=== PATIENT | female | born 1970 | race American Indian/Alaskan Native ===

== ENCOUNTER 2017-04-28 09:34 | Inpatient (IN) | payer BC ==
--- NOTE | 2017-04-28 10:18 | Emergency Department Report ---
HPI - General Chief Complaint: Allergic Reaction Time Seen by Provider: 04/28/17 10:13 - HPI HPI: Room 24 The patient is a 47-year-old female presented with a chief complaint tongue swelling. The patient states she takes Diovan HCT for blood pressure control. The patient states this morning after waking she thought she had a subjective fever so she took a Motrin at 07:00. Within the hour the patient states she noticed swelling of her tongue and itching of her face. The patient states she has taken Motrin in the past without difficulty. The patient has had angioedema from lisinopril in the past. Patient denies shortness of breath or pain of any type. Location: Tongue Duration: Approximately 3 hours Quality: Swelling Severity: Moderate Modifying factors: [see above] Context: [see above] Mode of transportation: [not driving] ED Past Medical Hx - Past Medical History Hx Hypertension: Yes Hx Diabetes: Yes - Surgical History Additional Surgical History: Hysterectomy - Family History Family history: no significant - Social History Smoking Status: Never Smoker Substance Use Type: Alcohol (occasional) - Medications Home Medications: Home Medications Medication Instructions Recorded Confirmed Last Taken Type Atenolol [Tenormin] 50 mg PO BID #60 tablet 06/13/13 Unknown Rx Azithromycin [Zithromax Z-ABDIAZIZ] 250 mg PO DAILY #6 tablet 06/13/13 Unknown Rx Clonidine HCl [Kapvay] 0.1 mg PO BID 06/13/13 06/13/13 06/07/13 History Hydrochlorothiazide [HCTZ] 25 mg PO QDAY #30 tablet 06/13/13 Unknown Rx Hydrocodone Bit/Homatrop Me-Br 5 ml PO Q4H PRN #80 syrup 06/13/13 Unknown Rx [Hydrocodone-Homatropine Syr 5-1.5 mg/5ml] Insulin Regular, Human Inj 10 unit SUB-Q AC 06/13/13 06/13/13 06/12/13 18:00 History [Novolin R Inj] Ibuprofen [Motrin] 800 mg PO Q8H #30 tablet 04/11/14 Unknown Rx methOCARBAMOL [Robaxin] 500 mg PO BID #30 tab 04/11/14 Unknown Rx traMADol [Ultram 50 MG tab] 50 mg PO Q6HR PRN #20 tablet 04/11/14 Unknown Rx Amoxicillin [Trimox CAP] 500 mg PO Q8H #30 capsule 04/06/15 Unknown Rx HYDROcodone/APAP 7.5-325 [[place] 1 each PO Q6HR PRN #16 tablet 04/06/15 Unknown Rx 7.5/325] ED Review of Systems ROS: Stated complaint: ALLERGIC REACTION Other details as noted in HPI Constitutional: fever Eyes: denies: eye pain ENT: other (tongue swelling) Respiratory: denies: shortness of breath Cardiovascular: denies: chest pain Gastrointestinal: denies: abdominal pain Genitourinary: denies: dysuria Musculoskeletal: denies: back pain Skin: pruritus Neurological: denies: headache Physical Exam - Physical Exam Vital Signs: Vital Signs 04/28/17 09:45 Temperature 98.9 F Pulse Rate 79 Respiratory 18 Rate Blood Pressure 159/78 O2 Sat by Pulse 100 Oximetry Physical Exam: GENERAL: The patient is well-developed well-nourished female lying on stretcher not appearing to be in acute distress. [] HEENT: Normocephalic. Atraumatic. Extraocular motions are intact. Patient has moist mucous membranes. Mild edema. OROPHARYNX CLEAR. NECK: Supple. No stridor CHEST/LUNGS: Clear to auscultation. There is no respiratory distress noted. HEART/CARDIOVASCULAR: Regular. There is no tachycardia. There is no gallop rub or murmur. ABDOMEN: Abdomen is soft, nontender. Patient has normal bowel sounds. There is no abdominal distention. SKIN: There is no rash. There is no edema. There is no diaphoresis. NEURO: The patient is awake, alert, and oriented. The patient is cooperative. The patient has normal speech MUSCULOSKELETAL: There is no evidence of acute injury. ED Course Vital Signs 04/28/17 09:45 Temperature 98.9 F Pulse Rate 79 Respiratory 18 Rate Blood Pressure 159/78 O2 Sat by Pulse 100 Oximetry ED Medical Decision Making - Lab Data Result diagrams: 04/28/17 10:55 04/28/17 10:55 Laboratory Tests 04/28/17 04/28/17 10:55 10:55 WBC 8.8 RBC 4.87 Hgb 12.1 Hct 37.6 MCV 77 L MCH 25 L MCHC 32 RDW 16.5 H Plt Count 238 Lymph % (Auto) 20.1 [place] % (Auto) 9.2 H Eos % (Auto) 1.3 Baso % (Auto) 1.4 Lymph # 1.8 [place] # 0.8 Eos # 0.1 Baso # 0.1 Seg Neutrophils % 68.0 Seg Neutrophils # 5.9 Sodium 136 L Potassium 3.7 Chloride 98.7 Carbon Dioxide 25 Anion Gap 16 BUN 12 Creatinine 0.7 Estimated GFR > 60 BUN/Creatinine Ratio 17 Glucose 263 H Calcium 9.5 - EKG Data -: EKG Interpreted by Me EKG shows normal: sinus rhythm Rate: normal - EKG Data When compared to previous EKG there are: previous EKG unavailable Interpretation: nonspecific ST-T wave leonela - Differential Diagnosis angioedema Critical care attestation.: If time is entered above; I have spent that time in minutes in the direct care of this critically ill patient, excluding procedure time. ED Disposition Clinical Impression: Angioedema Disposition: OP ADMIT IP TO THIS HOSP Is pt being admited?: Yes Does the pt Need Aspirin: No Condition: Fair Referrals: PRIMARY CARE, [Primary Care Provider] - 3-5 Days Time of Disposition: 11:37 (hospitalist paged (Dr Bay))
[2017-04-28] MEDS ORDERED: PEPCID IV ONE (10:19)
[2017-04-28 11:05] LABS: Basophils # (Auto) 0.1 K/mm3 (0.0-0.1); Basophils % (Auto) 1.4 % (0.0-1.8); Eosinophils # (Auto) 0.1 K/mm3 (0.0-0.4); Eosinophils % (Auto) 1.3 % (0.0-4.3); Hematocrit 37.6 % (30.3-42.9); Hemoglobin 12.1 gm/dl (10.1-14.3); Lymphocytes # (Auto) 1.8 K/mm3 (1.2-5.4); Lymphocytes % (Auto) 20.1 % (13.4-35.0); Mean Corpuscular HGB Conc 32 % (30-34); Mean Corpuscular Volume 77 fl (79-97); Monocytes # (Auto) 0.8 K/mm3 (0.0-0.8); Monocytes % (Auto) 9.2 % (0.0-7.3); Platelet Count 238 K/mm3 (140-440); Red Blood Count 4.87 M/mm3 (3.65-5.03); Red Cell Distribution Width 16.5 % (13.2-15.2)
[2017-04-28 11:07] LABS: Mean Corpuscular Hemoglobin 25 pg (28-32)
[2017-04-28 11:21] LABS: BUN/Creatinine Ratio 17; Blood Urea Nitrogen 12 mg/dL (7-17); Calcium 9.5 mg/dL (8.4-10.2); Hemolysis Index 20
[2017-04-28] MEDS ORDERED: DULCOLAX PR PRN (18:23)
[2017-04-28] MEDS ORDERED: TYLENOL PO PRN (18:23)
[2017-04-28] MEDS ORDERED: MORPHINE IV PRN (18:23)
[2017-04-28] MEDS ORDERED: PERCOCET 5/325 PO PRN (18:23)
[2017-04-28] MEDS ORDERED: ZOFRAN IV PRN (18:23)
[2017-04-28] MEDS ORDERED: MILK OF MAGNESIA PO PRN (18:23)
--- NOTE | 2017-04-28 18:23 | History and Physical Report ---
History of Present Illness Date of examination: 04/28/17 Date of admission: 04/28/17 11:55 Chief complaint: CC: Swelling of Lips and Tongue since AM History of present illness: SHANIQUA Mariscal 47-year-old AA female with pmh of HTN and IDDM presented with chief complaint of tongue swelling. The patient states she takes Diovan HCT for blood pressure control. The patient states this morning after waking she thought she had a subjective fever so she took a Motrin at 07:00. Within the hour the patient states she noticed swelling of her tongue and itching of her face. The patient states she has taken Motrin in the past without difficulty. The patient has had angioedema from lisinopril in the past. Patient denies shortness of breath or pain of any type. Probably exacerbated by Diovan or Ibuprofen Past Medical History Hx Hypertension: Yes Hx Diabetes: Yes Surgical History Additional Surgical History: Hysterectomy Family History Family history: no significant Social History Smoking Status: Never Smoker Substance Use Type: Alcohol (occasional) -Medications Home Medications: Home Medications Medication Instructions Recorded Confirmed Last Taken Type Atenolol [Tenormin] 50 mg PO BID #60 tablet 06/13/13 Unknown Rx Azithromycin [Zithromax Z-ABDIAZIZ] 250 mg PO DAILY #6 tablet 06/13/13 Unknown Rx Clonidine HCl [Kapvay] 0.1 mg PO BID 06/13/13 06/13/13 06/07/13 History Hydrochlorothiazide [HCTZ] 25 mg PO QDAY #30 tablet 06/13/13 Unknown Rx Hydrocodone Bit/Homatrop Me-Br 5 ml PO Q4H PRN #80 syrup 06/13/13 Unknown Rx [Hydrocodone-Homatropine Syr 5-1.5 mg/5ml] Insulin Regular, Human Inj 10 unit SUB-Q AC 06/13/13 06/13/13 06/12/13 18:00 History [Novolin R Inj] Ibuprofen [Motrin] 800 mg PO Q8H #30 tablet 04/11/14 Unknown Rx methOCARBAMOL [Robaxin] 500 mg PO BID #30 tab 04/11/14 Unknown Rx traMADol [Ultram 50 MG tab] 50 mg PO Q6HR PRN #20 tablet 04/11/14 Unknown Rx Amoxicillin [Trimox CAP] 500 mg PO Q8H #30 capsule 04/06/15 Unknown Rx HYDROcodone/APAP 7.5-325 [[place] 1 each PO Q6HR PRN #16 tablet 04/06/15 Unknown Rx 7.5/325] Review of Systems Stated complaint: ALLERGIC REACTION Other details as noted in HPI Constitutional: fever Eyes: denies: eye pain ENT: other (tongue swelling) Respiratory: denies: shortness of breath Cardiovascular: denies: chest pain Gastrointestinal: denies: abdominal pain Genitourinary: denies: dysuria Musculoskeletal: denies: back pain Skin: pruritus Neurological: denies: headache Past History Past Medical History: diabetes, hypertension Medications and Allergies Allergies Allergy/AdvReac Type Severity Reaction Status Date / Time lisinopril [From Zestril] Allergy Angioedema Verified 06/13/13 04:33 Home Medications Medication Instructions Recorded Confirmed Last Taken Type Atenolol [Tenormin] 50 mg PO BID #60 tablet 06/13/13 Unknown Rx Azithromycin [Zithromax Z-ABDIAZIZ] 250 mg PO DAILY #6 tablet 06/13/13 Unknown Rx Clonidine HCl [Kapvay] 0.1 mg PO BID 06/13/13 06/13/13 06/07/13 History Hydrochlorothiazide [HCTZ] 25 mg PO QDAY #30 tablet 06/13/13 Unknown Rx Hydrocodone Bit/Homatrop Me-Br 5 ml PO Q4H PRN #80 syrup 06/13/13 Unknown Rx [Hydrocodone-Homatropine Syr 5-1.5 mg/5ml] Insulin Regular, Human Inj 10 unit SUB-Q AC 06/13/13 06/13/13 06/12/13 18:00 History [Novolin R Inj] Ibuprofen [Motrin] 800 mg PO Q8H #30 tablet 04/11/14 Unknown Rx methOCARBAMOL [Robaxin] 500 mg PO BID #30 tab 04/11/14 Unknown Rx traMADol [Ultram 50 MG tab] 50 mg PO Q6HR PRN #20 tablet 04/11/14 Unknown Rx Amoxicillin [Trimox CAP] 500 mg PO Q8H #30 capsule 04/06/15 Unknown Rx HYDROcodone/APAP 7.5-325 [[place] 1 each PO Q6HR PRN #16 tablet 04/06/15 Unknown Rx 7.5/325] Exam - Constitutional Vitals: Temp Pulse Resp BP Pulse Ox 98.4 F 78 16 156/78 100 12/31/17 10:10 04/28/17 16:58 04/28/17 16:58 04/28/17 16:58 04/28/17 16:58 General appearance: Present: mild distress, well-nourished - EENT Eyes: Present: PERRL ENT: hearing intact, clear oral mucosa, other (Lips swollen moderately.,Tongue swollen.) - Neck Neck: Present: supple, normal ROM - Respiratory Respiratory effort: normal Respiratory: bilateral: CTA - Cardiovascular Heart rate: 80 Rhythm: regular Heart Sounds: Present: S1 & S2. Absent: rub, click - Extremities Extremities: pulses symmetrical, No edema Peripheral Pulses: within normal limits - Abdominal General gastrointestinal: Present: soft, non-tender, non-distended, normal bowel sounds Female genitourinary: Present: normal - Rectal Rectal Exam: deferred - Integumentary Integumentary: Present: clear, warm, dry - Musculoskeletal Musculoskeletal: gait normal, strength equal bilaterally - Psychiatric Psychiatric: appropriate mood/affect, intact judgment & insight - Neurologic Neurologic: CNII-XII intact, moves all extremities - Allied Health Allied health notes reviewed: nursing, case management Results - Labs CBC & Chem 7: 04/29/17 05:42 04/28/17 10:55 Labs: Laboratory Last Values WBC 8.8 K/mm3 (4.5-11.0) 04/28/17 10:55 RBC 4.87 M/mm3 (3.65-5.03) 04/28/17 10:55 Hgb 12.1 gm/dl (10.1-14.3) 04/28/17 10:55 Hct 37.6 % (30.3-42.9) 04/28/17 10:55 MCV 77 fl (79-97) L 04/28/17 10:55 MCH 25 pg (28-32) L 04/28/17 10:55 MCHC 32 % (30-34) 04/28/17 10:55 RDW 16.5 % (13.2-15.2) H 04/28/17 10:55 Plt Count 238 K/mm3 (140-440) 04/28/17 10:55 Lymph % (Auto) 20.1 % (13.4-35.0) 04/28/17 10:55 [place] % (Auto) 9.2 % (0.0-7.3) H 04/28/17 10:55 Eos % (Auto) 1.3 % (0.0-4.3) 04/28/17 10:55 Baso % (Auto) 1.4 % (0.0-1.8) 04/28/17 10:55 Lymph # 1.8 K/mm3 (1.2-5.4) 04/28/17 10:55 [place] # 0.8 K/mm3 (0.0-0.8) 04/28/17 10:55 Eos # 0.1 K/mm3 (0.0-0.4) 04/28/17 10:55 Baso # 0.1 K/mm3 (0.0-0.1) 04/28/17 10:55 Seg Neutrophils % 68.0 % (40.0-70.0) 04/28/17 10:55 Seg Neutrophils # 5.9 K/mm3 (1.8-7.7) 04/28/17 10:55 Sodium 136 mmol/L (137-145) L 04/28/17 10:55 Potassium 3.7 mmol/L (3.6-5.0) 04/28/17 10:55 Chloride 98.7 mmol/L (98-107) 04/28/17 10:55 Carbon Dioxide 25 mmol/L (22-30) 04/28/17 10:55 Anion Gap 16 mmol/L 04/28/17 10:55 BUN 12 mg/dL (7-17) 04/28/17 10:55 Creatinine 0.7 mg/dL (0.7-1.2) 04/28/17 10:55 Estimated GFR > 60 ml/min 04/28/17 10:55 BUN/Creatinine Ratio 17 % 04/28/17 10:55 Glucose 263 mg/dL (65-100) H 04/28/17 10:55 POC Glucose 273 (70-105) H 04/28/17 15:13 Calcium 9.5 mg/dL (8.4-10.2) 04/28/17 10:55 Short CBC 04/28/17 04/29/17 Range/Units 10:55 05:42 WBC 8.8 18.6 H (4.5-11.0) K/mm3 Hgb 12.1 12.4 (10.1-14.3) gm/dl Hct 37.6 37.8 (30.3-42.9) % Plt Count 238 278 (140-440) K/mm3 [facility] 04/28/17 10:55 Sodium 136 L Potassium 3.7 Chloride 98.7 Carbon Dioxide 25 BUN 12 Creatinine 0.7 Glucose 263 H Calcium 9.5 - Imaging and Cardiology EKG: report reviewed Assessment and Plan Advance Directives: Yes (Full code) VTE prophylaxis?: Chemical Plan of care discussed with patient/family: Yes - Patient Problems (1) Angioedema Current Visit: Yes Status: Acute Qualifiers: Encounter type: initial encounter Qualified Code(s): T78.3XXA - Angioneurotic edema, initial encounter Plan to address problem: Resolving Admitted for safety reasons/. Patent advised not to take ARB's or ELIESER inhibitors. Initiated on Solumedrol Pepcid and Benasryl Diovan stopped (2) HTN (hypertension) Current Visit: Yes Status: Chronic Qualifiers: Hypertension type: essential hypertension Qualified Code(s): I10 - Essential (primary) hypertension Plan to address problem: Cont Clonidine and Metoprolol plus HCTZ.Stopped Diovan.If BP not controlled will add Hydralzine or Amlodipine.Defer to Team .Patient instructed not to take ARB's or ELIESER inhibitors on future. (3) IDDM (insulin dependent diabetes mellitus) Current Visit: Yes Status: Chronic Plan to address problem: Cont Home Insulin and coverage.Check A1c (4) DVT prophylaxis Current Visit: Yes Status: Acute Plan to address problem: On Lovenox
[2017-04-28] MEDS: BENADRYL IV PRN (20:36)
[2017-04-28] MEDS: PEPCID IV SCH (23:10)
[2017-04-29 06:21] LABS: Hematocrit 37.8 % (30.3-42.9); Hemoglobin 12.4 gm/dl (10.1-14.3); Lymphocytes # (Auto) 1.3 K/mm3 (1.2-5.4); Lymphocytes % (Auto) 6.8 % (13.4-35.0); Mean Corpuscular HGB Conc 33 % (30-34); Mean Corpuscular Volume 78 fl (79-97); Monocytes # (Auto) 0.7 K/mm3 (0.0-0.8); Monocytes % (Auto) 3.9 % (0.0-7.3); Platelet Count 278 K/mm3 (140-440); Red Blood Count 4.87 M/mm3 (3.65-5.03); Red Cell Distribution Width 16.6 % (13.2-15.2)
[2017-04-29 06:22] LABS: Mean Corpuscular Hemoglobin 25 pg (28-32)
[2017-04-29] MEDS ORDERED: ULTRAM PO PRN (06:35)
[2017-04-29 06:47] LABS: Alanine Aminotransferase 9 units/L (7-56); Albumin 3.9 g/dL (3.9-5); BUN/Creatinine Ratio 23; Blood Urea Nitrogen 16 mg/dL (7-17); Calcium 9.2 mg/dL (8.4-10.2); Hemolysis Index 9
[2017-04-29] MEDS: NOVOLOG SUB-Q SCH ×2 (07:30→11:10)
[2017-04-29] MEDS ORDERED: CATAPRES PO SCH ×2 (08:00→18:00)
[2017-04-29] MEDS ORDERED: HCTZ PO SCH (10:00)
[2017-04-29] MEDS ORDERED: ROBAXIN PO SCH (10:00)
[2017-04-29] MEDS ORDERED: TENORMIN PO SCH (10:00)
[2017-04-29] MEDS: BENADRYL IV PRN (11:28)
[2017-04-29] MEDS: PEPCID IV SCH (11:28)
--- NOTE | 2017-04-29 17:07 | Discharge Summary ---
Providers - Providers Date of Admission: 04/28/17 11:55 Attending physician: SOFYA SAEED MD Primary care physician: IMPROVEMENT ENGINEER Hospitalization Condition: Fair Hospital course: 47-year-old AA female with pmh of HTN and IDDM presented with chief complaint of tongue swelling. She had been taking an ARB for blood pressure control. She was diagnosed with angioedema secondary to allergy to elieser inhibitors. She received steroids, H2 mirna and H1 mirna. She clinically improved. She was instructed to never take elieser inhibitors or angiotensin receptor blockers in the future. Her blood pressure medication optimized, she was subsequently discharged Discharge diagnoses Acute angioedema due to ELIESER inhibitor/arb unCONTROLLED HYPERTENSION TYPE 2 DIABETES, INSULIN-DEPENDENT Disposition: DC- TO HOME OR SELFCARE Time spent for discharge: 33 minutes Core Measure Documentation - Palliative Care Palliative Care/ Comfort Measures: Not Applicable - Core Measures Any of the following diagnoses?: none Exam - Constitutional Vitals: Temp Pulse Resp BP Pulse Ox 97.7 F 85 20 160/86 96 04/29/17 12:14 04/29/17 12:14 04/29/17 12:14 04/29/17 12:14 04/29/17 12:14 General appearance: Present: no acute distress, well-nourished - EENT Eyes: Present: PERRL ENT: hearing intact, clear oral mucosa - Neck Neck: Present: supple, normal ROM - Respiratory Respiratory effort: normal Respiratory: bilateral: CTA - Cardiovascular Heart Sounds: Present: S1 & S2. Absent: rub, click - Extremities Extremities: pulses symmetrical, No edema Peripheral Pulses: within normal limits - Abdominal General gastrointestinal: Present: soft, non-tender, non-distended, normal bowel sounds Female genitourinary: Present: normal - Integumentary Integumentary: Present: clear, warm, dry - Musculoskeletal Musculoskeletal: gait normal, strength equal bilaterally - Psychiatric Psychiatric: appropriate mood/affect, intact judgment & insight - Neurologic Neurologic: CNII-XII intact, moves all extremities Plan Follow up with: PRIMARY CARE, [Primary Care Provider] - 3-5 Days Forms: Work/School Excuse Out Patient, Work/School Release Form Prescriptions: Clonidine HCl [Kapvay] 0.2 mg PO BID 30 Days tab.er.12h Hydrochlorothiazide [HCTZ] 25 mg PO QDAY #30 tablet Insulin Regular, Human Inj [NovoLIN R Inj] 10 unit SUB-Q AC #1 vial Prednisone [predniSONE 5 mg (6-Day Pack, 21 Tabs)] 5 mg PO .TAPER #1 tab.ds.pk traMADol [Ultram 50 MG tab] 50 mg PO Q6HR PRN #20 tablet PRN Reason: Pain
[2017-04-29 17:22] VITALS: BP 161/87
[2017-04-29] MEDS ORDERED: BENADRYL PO ONE (19:00)
== END 2017-04-29 19:30 | disposition home or self-care (01) | DRG 916 ==
LOC: ED 09:34 → 3A 11:55
PROVIDERS: ADMIT Internal Medicine; ATTEND Internal Medicine
DX: T78.3XXA Angioneurotic edema, initial encounter (principal); I10 Essential (primary) hypertension; E11.9 Type 2 diabetes mellitus without complications; T46.4X5A Adverse effect of angiotensin-converting-enzyme inhibitors, initial encounter; Z79.4 Long term (current) use of insulin; Z90.710 Acquired absence of both cervix and uterus; Z72.89 Other problems related to lifestyle; Z79.899 Other long term (current) drug therapy; Z88.8 Allergy status to other drugs, medicaments and biological substances; Y92.89 Other specified places as the place of occurrence of the external cause
CPT/HCPCS: 36415; 80048; 80053; 82962; 83036; 85025; 93005; 93010; 96374; 96375; J1200; J2930

== ENCOUNTER 2018-06-09 07:15 | Day surgery (SDC) | payer BC, MEDICAID ==
--- NOTE | 2018-06-09 08:30 | Anesthesia Consultation ---
Anesthesia Consult and Med Hx Date of service: 06/09/18 - Airway Anesthetic Teeth Evaluation: Good ROM Head & Neck: Adequate Mental/Hyoid Distance: Adequate Mallampati Class: Class II - Pre-Operative Health Status ASA Pre-Surgery Classification: ASA3 Proposed Anesthetic Plan: General - Pulmonary Hx Smoking: No Hx Asthma: No COPD: No Hx Pneumonia: No Hx Sleep Apnea: No (ROSETTA PRE SCREEN LOW RISK) - Cardiovascular System Hx Hypertension: Yes (X 20 YRS) Hx Coronary Artery Disease: No Hx Heart Attack/AMI: No Hx Angina: No Hx Percutaneous Transluminal Coronary Angioplasty (PTCA): No Hx Pacemaker: No Hx Internal Defibrillator: No Hx Valvular Heart Disease: No Hx Heart Murmur: No Hx Peripheral Vascular Disease: No - Central Nervous System Hx Seizures: No CVA: Yes (CVA-VS- TIA 2010- LEFT SIDED WEAKNESS-NEVER PUT ON BLOOD THINNERS) Hx Back Pain: Yes (WITH JORGE LEG PAIN) - Gastrointestinal Hx Ulcer: No Hx Gastroesophageal Reflux Disease: Yes (mild; well controlled on omeprazole) - Endocrine Hx Renal Disease: No Hx End Stage Renal Disease: No Hx Cirrhosis: No Hx Non-Insulin Dependent Diabetes: Yes - Hematic Hx Sickle Cell Disease: No (SC TRAIT ONLY) - Other Systems Hx Cancer: No
[2018-06-09] MEDS ORDERED: ZOFRAN IV PRN (08:32)
--- NOTE | 2018-06-09 08:43 | Anesthesia Day of Surgery ---
Anesthesia Day of Surgery - Day of Surgery Patient Examined: Yes Patient H&P Reviewed: Yes Patient is NPO: Yes
[2018-06-09 08:48] LABS: Hematocrit 38.5 % (30.3-42.9); Hemoglobin 12.7 gm/dl (10.1-14.3)
[2018-06-09] MEDS ORDERED: SUBLIMAZE ONE (08:55)
[2018-06-09] MEDS ORDERED: DIPRIVAN 10 MG/ML IV ONE (08:56)
[2018-06-09] MEDS ORDERED: PEPCID PO NR (09:00)
[2018-06-09] MEDS ORDERED: XYLOCAINE MPF 2% ONE (09:00)
[2018-06-09] MEDS ORDERED: LACTATED RINGERS 1,000 ML IV SCH ×2 (09:00→11:00)
[2018-06-09] MEDS ORDERED: ZOFRAN ONE (09:34)
[2018-06-09] MEDS ORDERED: WATER FOR IRRIG STERILE IR ONE ×2 (09:40)
--- NOTE | 2018-06-09 09:47 | Post Operative Note ---
Date of procedure: 06/09/18 Pre-op diagnosis: bladder lesions Post-op diagnosis: same Findings: as above Procedure: cysto bx rpgs Anesthesia: GETA Surgeon: SONU BURNS Estimated blood loss: none Pathology: list (bladder) Specimen disposition: to lab Condition: stable Disposition: PACU
--- NOTE | 2018-06-09 09:48 | Discharge Summary ---
Short Stay Discharge Plan Activity: other (no straining ) Weight Bearing Status: Full Weight Bearing Diet: low cholesterol, low salt, diabetic Durable Medical Equipment Needed Upon Discharge: other (teach [facility] ) Follow up with: GARY MOODY MD [Primary Care Provider] - 7 Days SONU BURNS MD [Staff Physician] - 3 Days
[2018-06-09] MEDS: SUBLIMAZE IV PRN ×2 (09:56→10:26)
[2018-06-09] MEDS ORDERED: ANCEF/STERILE WATER 2 GM/20 ML 2 GM/20 ML SYRINGE IV NR (10:00)
--- NOTE | 2018-06-09 10:15 | Operative Report ---
PREOPERATIVE DIAGNOSIS: Bladder lesions. POSTOPERATIVE DIAGNOSIS: Bladder lesions. PROCEDURE: Cystoscopy, biopsy and excision of bladder lesions, retrograde. SURGEON: Gautam Dillon MD ANESTHESIA: General. FINDINGS: This is a woman with some hematuria. She has some bladder lesions and she now presents for cystoscopy. All risks and implications were discussed. These lesions appeared to be somewhat velvety and specifically for that reason, we decided to do a cystoscopy under anesthesia. She also had some atypical cytology. DESCRIPTION OF PROCEDURE: The patient was brought to the operating room and placed on the operating table. Following induction of anesthesia, placed in lithotomy position, prepped and draped in usual sterile fashion. Retrograde showed good filling and good drainage bilaterally with no persistent filling defects. On posterior wall, she had some velvety appearing lesions. These were non-papillary. 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 Biopsies were done here was totally excised. Area was cauterized. The patient tolerated the procedure well. No significant bleeding and a [place] was left. She tolerated the procedure well and brought to recovery in stable condition. JOB# [id number] BEATRIZ/BRUCE
[2018-06-09 10:35] VITALS: BP 123/66
--- NOTE | 2018-06-09 14:02 | Post Anesthesia Evaluation ---
- Post Anesthesia Evaluation Patient Participated: Yes Airway Patent: Yes Stable Respiratory Function: Yes Nausea/Vomiting: No Temp > 96.8F: Yes Pain Manageable: Yes Adequeate Hydration: Yes Anesthesia Complications: No Block Receding Appropriately: Not Applicable Patient on Ventilator: No
--- NOTE | 2018-06-10 08:09 | Fluoroscopy Report ---
FLUOROSCOPY RETROGRADE UROGRAPHY: HISTORY: Bladder lesion. FINDINGS: Fluoroscopy was provided by radiology during retrograde urography by the urologist. 5 fluoroscopic images were captured. There is adequate filling of the ureters and intrarenal collecting systems with no filling defects or anatomic abnormalities identified. Please correlate with the procedural report if needed. IMPRESSION: Retrograde pyelograms within normal limits.
== END 2018-06-09 11:25 | disposition home or self-care (01) ==
LOC: OR 07:15
PROVIDERS: ATTEND Urology
DX: N30.21 Other chronic cystitis with hematuria (principal); N32.9 Bladder disorder, unspecified; I10 Essential (primary) hypertension; E11.9 Type 2 diabetes mellitus without complications; K21.9 Gastro-esophageal reflux disease without esophagitis; Z90.49 Acquired absence of other specified parts of digestive tract; Z90.710 Acquired absence of both cervix and uterus; Z87.440 Personal history of urinary (tract) infections; Z98.890 Other specified postprocedural states; Z88.8 Allergy status to other drugs, medicaments and biological substances; Z79.899 Other long term (current) drug therapy; Z79.4 Long term (current) use of insulin; Z86.73 Personal history of transient ischemic attack (TIA), and cerebral infarction without residual deficits
CPT/HCPCS: 36415; 52204; 74420; 82962; 84132; 85014; 85018; 88305; 88341; 88342; A4217; C1758; J2405; J2704; J3010; J7120; Q9967